=== PATIENT | female | born 1975 | race Caucasian/White ===

== ENCOUNTER 2017-04-23 11:36 | Emergency (ER) | payer OTHER ==
[2017-04-23 11:42] VITALS: BP 114/72; PULSE 78; TEMP 98; BMI 25.0
[2017-04-23] MEDS ORDERED: diazePAM 2 MG TABLET PO ONE (12:34)
[2017-04-23] MEDS ORDERED: KETOROLAC TROMETHAMINE 60 MG/2 ML VIAL IM ONE (12:34)
--- NOTE | 2017-04-23 12:35 | PDOC ---
History of Present Illness - General Chief Complaint: Back Pain Stated Complaint: BACK PAIN Time Seen by Provider: 04/23/17 12:21 History Source: Patient Exam Limitations: No Limitations - History of Present Illness Initial Comments: 04/23/17 12:44 41 yr female with c/o low back pain for 3 days after lifting her 25lb child. Pt states she then felt a spasm to low back this am after carrying heavy grocery bags and her child. Pt denies urinary complaints, no vomiting or abd pain , pt has pain to the lower abck left side radiates to buttock and leg. 04/23/17 12:50 04/23/17 13:02 Severity: reports: moderate Pain Location: reports: back Loss of Consciousness: no loss of consciousness Associated Symptoms (Fall): denies symptoms Past History - Past Medical History Allergies/Adverse Reactions: Allergies Allergy/AdvReac Type Severity Reaction Status Date / Time azithromycin [From Zithromax] Allergy Verified 04/23/17 11:43 fluticasone propionate Allergy Verified 04/23/17 11:43 [From Advair Diskus] salmeterol xinafoate Allergy Verified 04/23/17 11:43 [From Advair Diskus] Home Medications: Ambulatory Orders Diazepam [Valium] 5 mg PO Q8H PRN #12 tablet MDD 15mg 04/23/17 Naproxen [Naprosyn -] 500 mg PO BID PRN #14 tablet 04/23/17 Oxycodone HCl/Acetaminophen [Percocet 5-325 mg Tablet] 1 tab PO Q6H PRN #8 tablet MDD 4 tabs 04/23/17 GI Disorders: Yes Seizures: Yes - Immunization History Immunization Up to Date: No - Psycho/Social/Smoking Cessation Hx Suicidal Ideation: No Smoking History: Never smoked Have you smoked in the past 12 months: No Information on smoking cessation initiated: No Hx Alcohol Use: No Drug/Substance Use Hx: No Trauma Specific PMHX - Complaint Specific PMHX Arthritis: No Back Injury: No Neck Injury: No Hx Sacro Iliac Joint Dysfunction: No Review of Systems - Review of Systems Able to Perform ROS?: Yes Is the patient limited Bel[place]ian proficient: No Constitutional: No: Symptoms Reported HEENTM: No: Symptoms Reported Respiratory: No: Symptoms reported Cardiac (ROS): No: Symptoms Reported ABD/GI: No: Symptoms Reported : No: Symptoms Reported Musculoskeletal: Yes: Symptoms Reported, See HPI, Back Pain *Physical Exam - Vital Signs Last Vital Signs Temp Pulse Resp BP Pulse Ox 98 F 78 18 114/72 100 04/23/17 11:38 04/23/17 11:38 04/23/17 11:38 04/23/17 11:38 04/23/17 11:38 - Physical Exam General Appearance: Yes: Nourished, Appropriately Dressed HEENT: positive: EOMI, STEPHANIE Neck: positive: Supple. negative: Tender Respiratory/Chest: positive: Lungs Clear, Normal Breath Sounds Cardiovascular: positive: Regular Rhythm, Regular Rate Musculoskeletal: positive: Normal Inspection, Decreased Range of Motion, Muscle Spasm, Other (muscle spasm left lower paraslinal lumbar ttp , reproduced with movement). negative: CVA Tenderness, CVA Tenderness (R), CVA Tenderness (L), Vertebral Tenderness Extremity: positive: Normal Capillary Refill, Normal Inspection, Normal Range of Motion Integumentary: positive: Normal Color, Dry, Warm Neurologic: positive: Fully Oriented, Alert, Normal Mood/Affect, Normal Response , Motor Strength 5/5, Finger to Nose (intact), Other (pos SLR left side ). negative: Numbness, Sensory Deficit, Babinski Medical Decision Making - Medical Decision Making 04/23/17 13:06 cc: low back pain radiates to leg with spasm after carrying heavy child and groceries. 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 CT results discussed and will give pt a copy of the report to take with her to see an orthopedist or her PMD. pt agrees with plan. *DC/Admit/Observation/Transfer Diagnosis at time of Disposition: Low back pain Qualifiers: Chronicity: acute Back pain laterality: left Sciatica presence: with sciatica Sciatica laterality: sciatica of left side Qualified Code(s): M54.42 - Lumbago with sciatica, left side - Discharge Dispostion Disposition: HOME Condition at time of disposition: Good - Prescriptions Prescriptions: Naproxen [Naprosyn -] 500 mg PO BID PRN #14 tablet PRN Reason: Back Pain Oxycodone HCl/Acetaminophen [Percocet 5-325 mg Tablet] 1 tab PO Q6H PRN #8 tablet MDD 4 tabs PRN Reason: Severe Pain Diazepam [Valium] 5 mg PO Q8H PRN #12 tablet MDD 15mg PRN Reason: Muscle Spasms - Referrals Referrals: Jovanny Wong MD [Primary Care Provider] - Chucho Cruz MD [Staff Physician] - - Patient Instructions Additional Instructions: follow with the orthopedist for follow up take the medications as prescribed warm compresses to lower back every 2hrs for 20 minutes avoid heavy lifting or bending walk around do not stay in one position return if worse - Post Discharge Activity Work/School Note: Back to Work
[2017-04-23] MEDS ORDERED: KETOROLAC TROMETHAMINE 60 MG/2 ML VIAL ONE (12:37)
[2017-04-23] MEDS ORDERED: diazePAM 2 MG TABLET ONE (12:37)
[2017-04-23 14:20] LABS: URINE APPEARANCE CLOUDY; URINE BILIRUBIN NEGATIVE (NEGATIVE); URINE BLOOD NEGATIVE (NEGATIVE); URINE COLOR DKYELLOW; URINE GLUCOSE (UA) NEGATIVE (NEGATIVE); URINE KETONE TRACE (NEGATIVE); URINE LEUK ESTERASE NEGATIVE (NEGATIVE); URINE NITRITE NEGATIVE (NEGATIVE); URINE PROTEIN 1+ (NEGATIVE); URINE UROBILINOGEN NEGATIVE mg/dL (0.2-1.0)
[2017-04-23 14:23] LABS: URINE BACTERIA MANY /hpf (NONE SEEN); URINE MUCUS MANY; URINE RBC 3 /hpf (0-3); URINE WBC 9 /hpf (3-5)
== END 2017-04-23 15:37 | disposition home or self-care (01) ==
LOC: JERFT 11:36
PROC: 3E0233Z Introduction of Anti-inflammatory into Muscle, Percutaneous Approach (ICD-10-PCS; principal; 2017-04-23)
DX: M54.42 Lumbago with sciatica, left side (principal); Z88.1 Allergy status to other antibiotic agents; Z88.8 Allergy status to other drugs, medicaments and biological substances
CPT/HCPCS: 72131-TC; 81003; 81015; 84703; 99281-25

== ENCOUNTER 2017-08-15 09:34 | Emergency (ER) | payer OTHER ==
[2017-08-15 09:41] VITALS: TEMP 98.6; BMI 23.8
--- NOTE | 2017-08-15 09:58 | PDOC ---
History of Present Illness - General History Source: Patient Exam Limitations: No Limitations - History of Present Illness Initial Comments: 08/15/17 12:04 The patient is a 42 year old female, with a significant past medical history of Seizures, H. Pylori who presents to the emergency department with rectal bleeding since last night. Patient has been recovering from viral gastroenteritis which had been resolving. However, last night patient experienced constipation with straining. Subsequently, the patient noticed bright red blood when wiping. Patient defecated a second time last night and noted increasing bright red blood dripping onto toilet. Denies clots but reports water in the toilet was bright red. Patient reports using stool softener yesterday with no relief. Patient presented to the ED this morning as her mom urged her to due to the bleeding. Patient denies chest pain, headache or dizziness. Patient denies fever, chills, abdominal pain, nausea, vomit, diarrhea. Patient denies dysuria, frequency, urgency or hematuria. Patient denies sick contacts or recent travel. Allergies: azithromycin, fluticasone propionate, Latex, Natural Rubber, salmeterol xinafoate Past surgical history: Ovarian cyst removal Social history: None PCP: Dr. Wong <Chrystal Maxwell - Last Filed: 08/15/17 15:26> <Jonn Rouse - Last Filed: 08/15/17 19:10> - General Chief Complaint: Rectal Bleed Stated Complaint: RECTAL BLEED Time Seen by Provider: 08/15/17 09:57 Past History <Chrystal Maxwell - Last Filed: 08/15/17 15:26> - Past Medical History COPD: No GI Disorders: Yes (H PYLORI) Seizures: Yes - Immunization History Immunization Up to Date: No - Suicide/Smoking/Psychosocial Hx Smoking History: Never smoked Have you smoked in the past 12 months: No Hx Alcohol Use: No Drug/Substance Use Hx: No <Jonn Rouse - Last Filed: 08/15/17 19:10> - Past Medical History Allergies/Adverse Reactions: Allergies Allergy/AdvReac Type Severity Reaction Status Date / Time azithromycin [From Zithromax] Allergy Verified 08/15/17 09:41 fluticasone propionate Allergy Verified 08/15/17 09:41 [From Advair Diskus] Latex, Natural Rubber Allergy Rash Verified 08/15/17 09:42 salmeterol xinafoate Allergy Verified 08/15/17 09:41 [From Advair Diskus] Home Medications: Ambulatory Orders Glycerin Suppository Adult - 1 each RC ONCE #1 supp.rect 08/15/17 Polyethylene Glycol 3350 [Miralax (For Daily Use) -] 17 gm PO DAILY #1 bottle Review of Systems - Review of Systems Able to Perform ROS?: Yes Comments:: 08/15/17 12:05 GENERAL/CONSTITUTIONAL: No fever or chills. No weakness. HEAD, EYES, EARS, NOSE AND THROAT: No change in vision. No ear pain or discharge. No sore throat. GASTROINTESTINAL: +constipation. +rectal bleeding. No nausea, vomiting, diarrhea. GENITOURINARY: No dysuria, frequency, or change in urination. CARDIOVASCULAR: No chest pain or shortness of breath. RESPIRATORY: No cough, wheezing, or hemoptysis. MUSCULOSKELETAL: No joint or muscle swelling or pain. No neck or back pain. SKIN: No rash NEUROLOGIC: No headache, vertigo, loss of consciousness, or change in strength/ sensation. ENDOCRINE: No increased thirst. No abnormal weight change. HEMATOLOGIC/LYMPHATIC: No anemia, easy bleeding, or history of blood clots. ALLERGIC/IMMUNOLOGIC: No hives or skin allergy. <Chrystal Maxwell - Last Filed: 08/15/17 15:26> *Physical Exam - Vital Signs Last Vital Signs Temp Pulse Resp BP Pulse Ox 98.6 F 90 20 115/67 100 08/15/17 09:38 08/15/17 09:38 08/15/17 09:38 08/15/17 09:38 08/15/17 09:38 - Physical Exam Comments: 08/15/17 12:05 GENERAL: Awake, alert, and fully oriented, in no acute distress HEAD: No signs of trauma EYES: PERRLA, EOMI, sclera anicteric, conjunctiva clear ENT: Auricles normal inspection, hearing grossly normal, nares patent, oropharynx clear without exudates. Moist mucosa NECK: Normal ROM, supple, no lymphadenopathy, JVD, or masses LUNGS: Breath sounds equal, clear to auscultation bilaterally. No wheezes, and no crackles HEART: Regular rate and rhythm, normal S1 and S2, no murmurs, rubs or gallops ABDOMEN: Soft, nontender, normoactive bowel sounds. No guarding, no rebound. No masses EXTREMITIES: Normal range of motion, no edema. No clubbing or cyanosis. No cords , erythema, or tenderness NEUROLOGICAL: Normal speech, cranial nerves intact, negative pronator drift, 5/ 5 strength in all 4 extremities, normal sensation to light touch in all 4 extremities, normal cerebellar exam, normal gait, normal reflexes and tone SKIN: Warm, Dry, normal turgor, no rashes or lesions noted. RECTAL: +2 external non bleeding non thrombosed hemorrhoids at 6 o'clock. No active bleeding. <Chrystal Maxwell - Last Filed: 08/15/17 15:26> - Vital Signs Last Vital Signs Temp Pulse Resp BP Pulse Ox 98.6 F 90 20 115/67 100 08/15/17 09:38 08/15/17 09:38 08/15/17 09:38 08/15/17 09:38 08/15/17 09:38 <Jonn Rouse - Last Filed: 08/15/17 19:10> ED Treatment Course - LABORATORY CBC & Chemistry Diagram: 08/15/17 11:25 08/15/17 11:25 - ADDITIONAL ORDERS Additional order review: Laboratory Results 08/15/17 11:38 Urine Color Lt. yellow Urine Appearance Clear Urine pH 6.5 D Ur Specific [place] 1.020 Urine Protein Negative Urine Glucose (UA) Negative Urine Ketones Trace H Urine Blood Trace H Urine Nitrite Negative Urine Bilirubin Negative Urine Urobilinogen 0.2 Urine HCG, Qual Negative 08/15/17 11:25 RBC 4.69 D MCV 84.4 MCHC 33.1 RDW 13.3 MPV 8.2 Neutrophils % 77.2 Lymphocytes % 15.6 D Monocytes % 5.8 Eosinophils % 0.6 Basophils % 0.8 D - Medications Given in the ED: ED Medications Discontinued Medications Generic Name Dose Route Start Last Admin Trade Name Freq PRN Reason Stop Dose Admin Polyethylene Glycol 17 gm 08/15/17 10:15 08/15/17 11:33 Miralax (For Daily Use) - PO 08/15/17 10:16 17 gm ONCE ONE Administration <Chrystal Maxwell - Last Filed: 08/15/17 15:26> - LABORATORY CBC & Chemistry Diagram: 08/15/17 15:15 08/15/17 11:25 <Jonn Rouse - Last Filed: 08/15/17 19:10> Medical Decision Making - Medical Decision Making 08/15/17 10:26 86-year-old female with a history of seizure disorder and H. pylori presents with bright red blood per rectum. Vitals are unremarkable. Exam with 2 nonbleeding nonthrombosed external hemorrhoids, with no active bleeding. No abdominal pain or tenderness. Bleeding likely secondary to external hemorrhoids that are bleeding due to constipation. Given the episode of filling the toilet up with blood will check a 4 hour CBC for stability. In the meantime will give the patient laxatives, and check basic labs. 08/15/17 13:34 Labs within normal limits. Patient is comfortable with no further bright red blood per rectum. Patient given MiraLAX for constipation. Will check 4 hours CBC at 3 PM. 08/15/17 17:08 Repeat CBC with hgb dropping 1 point, however hgb still >10. Pt with no further bleeding in the ED. Hemodynamically stable. Pt feels well, will DC with f/u with PMD and GI. I discussed the physical exam findings, ancillary test results and final diagnoses with the patient. I answered all of the patient's questions. The patient was satisfied with the care received and felt comfortable with the discharge plan and treatment plan. The patient will call their primary care physician within 24 hours to arrange follow-up and will return to the Emergency Department with any new, persistent or worsening symptoms. <Jonn Rouse - Last Filed: 08/15/17 19:10> *DC/Admit/Observation/Transfer - Attestations Scribe Attestion: 08/15/17 12:05 Documentation prepared by Chrystal Maxwell, acting as medical underwriter for Jonn Rouse MD <Chrystal Maxwell - Last Filed: 08/15/17 15:26> - Discharge Dispostion Admit: No - Attestations Physician Attestion: 08/15/17 16:51 I, Dr. Jonn Rouse MD, attest that this document has been prepared under my direction and personally reviewed by me in its entirety. I further attest, that it accurately reflects all work, treatment, procedures and medical decision -making performed by me. <Jonn Rouse - Last Filed: 08/15/17 19:10> Diagnosis at time of Disposition: Constipation - Discharge Dispostion Disposition: HOME Condition at time of disposition: Stable - Prescriptions Prescriptions: Glycerin Suppository Adult - 1 each RC ONCE #1 supp.rect Polyethylene Glycol 3350 [Miralax (For Daily Use) -] 17 gm PO DAILY #1 bottle - Referrals Referrals: Jovanny Wong MD [Primary Care Provider] - Xander Martinez MD [Staff Physician] - - Patient Instructions Printed Discharge Instructions: DI for Hemorrhoids, DI for Rectal Bleeding Additional Instructions: Follow-up with your primary care doctor within [address] Martinez's office for a follow-up appointment with the lining caser within 1-2 weeks. Although your rectal bleeding is likely due to constipation and hemorrhoids, you must follow-up with a lining caser to make sure that it is not a sign of cancer. Return to the emergency department if you have any new, worsening or concerning symptoms.
[2017-08-15] MEDS ORDERED: POLYETHYLENE GLYCOL 3350 119 GM BTL PO ONE (10:15)
[2017-08-15 11:42] LABS: BASOPHIL 0.8 % (0-2.0); EOSINOPHIL 0.6 % (0-4.5); MCH 27.9 pg (25.7-33.7); MCHC 33.1 g/dl (32.0-36.0); MEAN CELL VOLUME 84.4 fl (80-96); MEAN PLT VOLUME 8.2 fl (7.5-11.1); NEUTROPHILS 77.2 % (42.8-82.8); PLATELET COUNT 232 K/MM3 (134-434); RDW 13.3 % (11.6-15.6); WHITE BLOOD COUNT 8.7 K/mm3 (4.0-10.0)
[2017-08-15 11:50] LABS: PH,URINE 6.5 (5.0-8.0); URINE APPEARANCE CLEAR; URINE BILIRUBIN NEGATIVE (NEGATIVE); URINE COLOR LT. YELLOW; URINE GLUCOSE (UA) NEGATIVE (NEGATIVE); URINE KETONE TRACE (NEGATIVE); URINE NITRITE NEGATIVE (NEGATIVE); URINE PROTEIN NEGATIVE (NEGATIVE); URINE UROBILINOGEN 0.2 mg/dL (0.2-1.0)
[2017-08-15 11:53] LABS: URINE BLOOD TRACE (NEGATIVE)
[2017-08-15 12:14] LABS: ALBUMIN 3.8 g/dl (3.4-5.0); ANION GAP 5 (8-16); BILIRUBIN,TOTAL 0.7 mg/dL (0.2-1.0); CALCIUM 8.3 mg/dL (8.5-10.1); CO2 27 mmol/L (21-32); CREATININE 0.6 mg/dL (0.55-1.02); GLUCOSE,RANDOM 86 mg/dL (74-106); SGOT/AST 10 U/L (15-37); SGPT/ALT 15 U/L (12-78); TOT PROT 6.9 g/dl (6.4-8.2)
[2017-08-15 12:15] LABS: ALK PHOS 60 U/L (45-117)
[2017-08-15 15:25] LABS: BASOPHIL 0.4 % (0-2.0); MCH 28.8 pg (25.7-33.7); MCHC 34.3 g/dl (32.0-36.0); MEAN PLT VOLUME 8.3 fl (7.5-11.1); NEUTROPHILS 68.1 % (42.8-82.8); PLATELET COUNT 229 K/MM3 (134-434); RDW 13.5 % (11.6-15.6); WHITE BLOOD COUNT 7.8 K/mm3 (4.0-10.0)
[2017-08-15] MEDS ORDERED: NAPROXEN 500 MG TABLET (FP) PO ONE (15:45)
[2017-08-15] MEDS ORDERED: NAPROXEN 500 MG TABLET (FP) ONE (16:05)
[2017-08-15 17:10] VITALS: BP 118/65; PULSE 75
[2017-08-15 18:35] LABS: URINE LEUK ESTERASE Negative (NEGATIVE)
== END 2017-08-15 17:10 | disposition home or self-care (01) ==
LOC: JER 09:34
DX: K59.00 Constipation, unspecified (principal); Z86.69 Personal history of other diseases of the nervous system and sense organs
CPT/HCPCS: 36415; 80053; 81003; 81015; 84703; 85025; 87086; 99284-25